=== PATIENT | female | born 1995 | race Caucasian/White ===

== ENCOUNTER 2018-01-07 01:01 | Emergency (ER) | payer SELFPAY ==
[2018-01-07] MEDS ORDERED: Adacel (T-DAP) 0.5 ML VIAL ONE (01:26)
[2018-01-07 01:43] LABS: #Basophils 0.1 thou/uL (0.0-0.2); #Monocytes 0.7 thou/uL (0.11-0.59); #Neutrophils 3.8 thou/uL (1.40-6.50); %Basophils 0.9 % (0.0-1.0); %Eosinophils 0.6 % (0.0-10.0); %Lymphocytes 39.7 % (21.0-51.0); %Monocytes 9.4 % (0.0-10.0); %Neutrophils 49.5 % (42.0-75.0); Hemoglobin 13.3 g/dL (12.0-16.0); Mean Corpuscular HGB CONC 34.7 g/dL (32.0-36.0); Mean Corpuscular Hemoglobin 31.5 pg (27.0-31.0); Mean Platelet Volume 6.3 fL (7.4-10.4); Platelet Count 329 thou/uL (130-400); RBC Distribution Width 11.1 % (11.5-14.5); Red Blood Cell (RBC) Count 4.21 mill/uL (4.20-5.40); White Blood Cell (WBC) Count 7.6 thou/uL (4.8-10.8)
[2018-01-07 02:06] LABS: ALT (SGPT) 12 U/L (8-55); AST (SGOT) 18 U/L (5-34); Albumin 4.3 g/dL (3.5-5.0); Alcohol 304 mg/dL (Less than 10); Alkaline Phosphatase 60 U/L (40-150); Anion Gap 13 mmol/L (10-20); BUN (Urea Nitrogen) 7 mg/dL (7.0-18.7); Bilirubin, Total 0.2 mg/dL (0.2-1.2); Calc. Creatinine Clearance 0 mL/min (70-130); Calcium 8.8 mg/dL (7.8-10.44); Carbon Dioxide 26 mmol/L (22-29); Chloride 109 mmol/L (98-107); Estimated GFR-MDRD Greater than 90; Globulin 3.2 g/dL (2.4-3.5); Glucose 92 mg/dL (70-105); Potassium 3.6 mmol/L (3.5-5.1); Protein, Total 7.5 g/dL (6.0-8.3); Sodium 144 mmol/L (136-145)
[2018-01-07 02:09] LABS: BHCG - Serum Negative (NEGATIVE); Pregs Control Background? CLEAR/WHITE (CLR/WHITE); Pregs Control Bar Appear? YES (CONTROL BAR)
[2018-01-07] MEDS ORDERED: Lidocaine 1% w/Epinephrine 1:100K 20 ML VIAL ONE (03:25)
--- NOTE | 2018-01-07 15:58 | CT ---
PRELIMINARY REPORT/[facility]/EMERGENTY AFTER-HOURS PROCEDURE CT Head Without Intravenous Contrast EXAM DATE/TIME: 01/07/2018 1:42 AM CLINICAL HISTORY: 22 years old, female; Injury or trauma; Fall; Initial encounter; Blunt trauma (contusions or hematoma s); Patient HX: F22 presents to the ed S/P fall. Pt's friends told ems she fell from two steps up hit ting her head and experiencing loc for an unknown period of time. Denies chest pain, denies abdominal pain. PT reports allergy to codeine and sulfa drugs. TECHNIQUE: Axial computed tomography images of the head/brain without intravenous contrast. COMPARISON: No relevant prior studies available. FINDINGS: Brain: Normal. No hemorrhage. No significant white matter disease. No edema. Ventricles: Normal. No ventriculomegaly. Bones/joints: Normal. No acute fracture. Sinuses: Normal as visualized. No acute sinusitis. Mastoid air cells: Normal as visualized. No mastoid effusion. Soft tissues: There is a RIGHT posterior lateral scalp laceration with small hematoma measuring 11 mm . There is RIGHT frontal scalp soft tissue swelling. IMPRESSION: No acute intracranial hemorrhage. Thank you for allowing us to participate in the care of your patient. Dictated and Authenticated by: Thom Cruz MD 01/07/2018 2:14 AM Central Time ([place] & [place]) FINAL REPORT BRAIN CT WITHOUT IV CONTRAST: HISTORY: A 22-year-old female with a history of head injury following a fall and trauma. FINDINGS: Right posterolateral scalp injury. Minimal right frontal scalp swelling. No mass or bleed. POS: [facility]
--- NOTE | 2018-01-07 15:59 | CT ---
PRELIMINARY REPORT/[facility]/EMERGENTY AFTER-HOURS PROCEDURE CT Cervical Spine Without Intravenous Contrast EXAM DATE/TIME: 01/07/2018 1:42 AM CLINICAL HISTORY: 22 years old, female; Injury or trauma; Fall; Initial encounter; Blunt trauma; Patient HX: F22 presen ts to the ed S/P fall. Pt's friends told ems she fell from two steps up hitting her head and experien cing loc for an unknown period of time. Denies chest pain, denies abdominal pain. PT reports allergy to codeine and sulfa drugs. TECHNIQUE: Axial computed tomography images of the cervical spine without intravenous contrast. COMPARISON: No relevant prior studies available. FINDINGS: Vertebrae: The vertebral foramen are grossly intact. No acute cervical spine fracture is demonstrated . There is motion artifact limiting evaluation of T2. Discs/Spinal canal/Neural foramina: No spinal stenosis. No neural foraminal narrowing. Soft tissues: Unremarkable. Lungs: The visualized portions of the lung apices are normal. IMPRESSION: No acute cervical spine fracture is demonstrated. Thank you for allowing us to participate in the care of your patient. Dictated and Authenticated by: Thom Cruz MD 01/07/2018 2:19 AM Central Time ([place] & [place]) FINAL REPORT CERVICAL SPINE CT SCAN WITHOUT IV CONTRAST: EMERGENCY AFTER HOURS EXAM TIME: 1:44 a.m. DATE: 01/07/2018. FINDINGS: Motion artifact at the upper thoracic level. No acute fracture or facet dislocation. POS: [facility]
== END 2018-01-07 06:05 | disposition home or self-care (01) ==
LOC: ERS 01:01
DX: S01.01XA Laceration without foreign body of scalp, initial encounter (principal); F10.129 Alcohol abuse with intoxication, unspecified; F41.9 Anxiety disorder, unspecified; F31.9 Bipolar disorder, unspecified; Z79.899 Other long term (current) drug therapy; W17.89XA Other fall from one level to another, initial encounter
CPT/HCPCS: 12004; 36415; 70450; 72125; 80053; 80307; 84703; 85025; 90471; 90715; 96360; 96361; J2001